=== PATIENT | female | born 1970 | race Caucasian/White ===

== ENCOUNTER 2018-01-26 13:27 | Emergency (ER) | payer BC ==
[~2018-01-26] VITALS: Ht 160 cm; Wt 76.7 kg
[~2018-01-26 13:27] MED LIST: BACTRIM DS TAB1 EACH PO; NOHOMEMEDICATIONS; NORCO 5-325 TA1 EACH PO; PERCOCET 5-3251 EACH PO; ZESTORETIC 20-1 EAC3 PO
[2018-01-26 13:53] LABS: ABSOLUTE BASOPHILS 0.1 thou/uL (0.0-0.2); ABSOLUTE EOSINOPHILS 0.1 thou/uL (0.0-0.7); ABSOLUTE LYMPHOCYTES 3.4 thou/uL (0.8-5.3); ABSOLUTE MONOCYTES 0.9 thou/uL (0.0-1.2); BASOPHILS 0.6 %; EOSINOPHILS 1.1 %; HEMOGLOBIN 15.6 gm/dL (12.0-15.0); MCH 31.3 pg (26.0-34.0); MCV 92.1 fL (80.0-100.0); MONOCYTES 7.5 %; MPV 10.6 fl. (7.2-11.1); NUCLEATED RBCS 0 /100WBC; PLATELET COUNT* 244 thou/uL (150-400); POLYS 60.8 %; RDW-CV 12.6 % (10.5-14.5); WBC 11.5 thou/uL (4.0-11.0)
[2018-01-26 14:04] LABS: ANION GAP 6 mmol/L (7-16); BUN 14 mg/dL (7-18); CALCIUM 9.3 mg/dL (8.5-10.1); CHLORIDE 103 mmol/L (98-107); CO2 31 mmol/L (21-32); GLUCOSE 75 mg/dL (70-99); POTASSIUM 3.7 mmol/L (3.5-5.1); SODIUM 140 mmol/L (136-145)
[2018-01-26 14:08] LABS: APTT 28.2 Seconds (25.0-31.3); PROTIME 9.9 Seconds (9.20-11.50)
[2018-01-26 14:23] LABS: ALBUMIN 3.8 g/dL (3.4-5.0); ALKALINE PHOSPHATASE 82 U/L (46-116); CK-MB MASS 1.2 ng/mL (<0.5-3.6); LIPASE 160 U/L (73-393); MAGNESIUM 1.8 mg/dL (1.8-2.4); NT-PRO BRAIN NAT PEPTIDE 28 pg/mL (<300); SGOT 17 U/L (15-37); SGPT 27 U/L (30-65); TOTAL BILIRUBIN 0.5 mg/dL (<0.1-1.0); TOTAL PROTEIN 7.7 g/dL (6.4-8.2); TROPONIN-I LEVEL <0.06 ng/mL (<0.06)
[2018-01-26 14:44] VITALS: BP 154/95
--- NOTE | 2018-01-27 09:13 | EKG ---
[place] [address] ELECTROCARDIOGRAM REPORT Name: ESTELLA JASSO Room: [facility]#: [id number] Admission: 01/26/18 Attend Phys: Discharge: 01/26/18 Date of : 72 Report #: [id number] THIS REPORT FOR: //name// [facility] ED Test Date: 2018-01-26 Test Time: 13:33:37 Pat Name: ESTELLA JASSO Department: Room: Gender: F Marketing Account Executive: : 1970 Requested By: Miguel Dickey Order Number: [id number] MD: Morris Bernal Measurements Intervals [place] Rate: 81 P: 12 HI: 127 QRS: 62 QRSD: 98 T: 69 QT: 395 QTc: 459 Interpretive Statements Sinus rhythm Compared to ECG 10/20/2013 12:55:33 No significant changes Electronically Signed On 01-27-2018 9:12:59 CDT by Morris Bernal [email or web address] <ELECTRONICALLY SIGNED> By: Morris Bernal MD, [facility] 01/27/18 0912 1333 1333 Morris Bernal MD, FACC /EPI
== END 2018-01-26 14:47 | disposition home or self-care (01) ==
LOC: M.ERS 13:27
PROVIDERS: Family Medicine
DX: F41.0 Panic disorder [episodic paroxysmal anxiety] (principal); I10 Essential (primary) hypertension; Z90.710 Acquired absence of both cervix and uterus; Z88.0 Allergy status to penicillin; Z88.1 Allergy status to other antibiotic agents; Z88.6 Allergy status to analgesic agent

== ENCOUNTER 2020-03-02 07:53 | Emergency (ER) | payer BC ==
[~2020-03-02] VITALS: Ht 167.6 cm; Wt 83.9 kg
[2020-03-02 08:24] LABS: ABSOLUTE BASOPHILS 0.1 thou/uL (0.0-0.2); ABSOLUTE EOSINOPHILS 0.2 thou/uL (0.0-0.7); ABSOLUTE LYMPHOCYTES 2.4 thou/uL (0.8-5.3); ABSOLUTE MONOCYTES 0.9 thou/uL (0.0-1.2); ABSOLUTE NEUTROPHILS 6.7 thou/uL (1.6-8.1); BASOPHILS 0.9 %; EOSINOPHILS 1.7 %; HEMOGLOBIN 15.8 gm/dL (12.0-15.0); LYMPHOCYTES 23.1 %; MCH 31.8 pg (26.0-34.0); MCHC 35.1 g/dL (28.0-37.0); MCV 90.6 fL (80.0-100.0); MPV 10.3 fl. (7.2-11.1); NUCLEATED RBCS 0 /100WBC; PLATELET COUNT* 240 thou/uL (150-400); POLYS 65.3 %; RBC 4.97 mil/uL (4.20-5.00); WBC 10.3 thou/uL (4.0-11.0)
[2020-03-02 08:35] LABS: CREATININE 0.9 mg/dL (0.6-1.3)
[2020-03-02 08:40] LABS: ALBUMIN 3.7 g/dL (3.4-5.0); TOTAL BILIRUBIN 0.4 mg/dL (<0.1-1.0)
[2020-03-02] MEDS ORDERED: NORCO 5-325 TA1 EAC1 PO (08:48)
[2020-03-02 08:57] VITALS: BP 185/108
--- NOTE | 2020-03-03 09:41 | EKG ---
[place] [address] ELECTROCARDIOGRAM REPORT Name: ESTELLA JASSO Room: [facility]#: [id number] Admission: 03/02/20 Attend Phys: Discharge: 03/02/20 Date of : 72 Date of Service: 03/02/20 08 Report #: [id number] THIS REPORT FOR: //name// [facility] ED Test Date: 2020-03-02 Test Time: 08:01:32 Pat Name: ESTELLA JASSO Department: Room: Gender: F Instructor Ballroom Dancing: : 1970 Requested By: Miguel Dickey Order Number: [id number] MD: Carmelo Topete Measurements Intervals [place] Rate: 85 P: 58 CO: 149 QRS: 40 QRSD: 119 T: 66 QT: 424 QTc: 505 Interpretive Statements Sinus rhythm Artifact in lead(s) II,III,aVR,aVL,aVF,V1,V2,V3,V4,V5,V6 and baseline wander in lead(s) V5,V6 suggests tremor Compared to ECG 01/26/2018 13:33:3 ST (T wave) deviation now present Electronically Signed On 03-03-2020 9:40:50 CDT by Carmelo Topete [email or web address] <ELECTRONICALLY SIGNED> By: Toro Topete MD, [facility] 03/03/20939 0 0 Toro Topete MD, [facility] /EPI
== END 2020-03-02 08:58 | disposition home or self-care (01) ==
LOC: M.ERS 07:53
PROVIDERS: Family Medicine
DX: R07.89 Other chest pain (principal); I10 Essential (primary) hypertension; Z90.710 Acquired absence of both cervix and uterus; Z98.51 Tubal ligation status; Z90.49 Acquired absence of other specified parts of digestive tract; Z88.0 Allergy status to penicillin; Z88.1 Allergy status to other antibiotic agents; Z88.6 Allergy status to analgesic agent